=== PATIENT | male | born 1965 | race Caucasian/White ===

== ENCOUNTER → 2018-11-15 | Outpatient (CLI) | payer OTHER | LOC: BMCIMAGING 07:43 | PROVIDERS: ATTEND Podiatrist Foot & Ankle Surgery | DX: S92.352D Displaced fracture of fifth metatarsal bone, left foot, subsequent encounter for fracture with routine healing (principal) ==

== ENCOUNTER → 2018-12-06 | Outpatient (CLI) | payer OTHER | LOC: BMCIMAGING 08:32 | PROVIDERS: ATTEND Podiatrist Foot & Ankle Surgery | DX: S92.352D Displaced fracture of fifth metatarsal bone, left foot, subsequent encounter for fracture with routine healing (principal) ==

== ENCOUNTER 2019-05-12 08:27 | Observation (INO) | payer OTHER | END 2019-05-13 14:05 | disposition home or self-care (01) | LOC: CED 08:27 → CEDHOLD 10:05 → F3N 13:50 ==

== ENCOUNTER 2019-05-19 22:37 | Emergency (ER) | payer OTHER | END 2019-05-19 23:27 | disposition home or self-care (01) | LOC: CED 22:37 ==